=== PATIENT | female | born 1975 | race Caucasian/White ===

== ENCOUNTER → 2023-02-02 08:52 | Outpatient (CLI) | payer OTHER, SELFPAY ==
--- NOTE | 2023-02-02 08:58 | DI.RAD.S_ITS ---
PROCEDURE: XR ANKLE RT MIN 3V INDICATIONS: RIGHT ANKLE PAIN TECHNIQUE: 3 views of the ankle were acquired. COMPARISON: None. FINDINGS: Bones: No fractures or dislocations. Ankle mortise is normally aligned. No suspicious bony lesions. Soft tissues: No tibiotalar joint effusion. Achilles tendon appears normal. IMPRESSION: No evidence acute bony abnormality. If clinical suspicion and/or symptoms persist, further assessment with repeat plain films, or advanced imaging (e.g., CT, MRI, or bone scan) may be helpful for further assessment. Dictated by: Han Mccallum M.D. on 02/02/2023 at 9:33 Approved by: Han Mccallum M.D. on 02/02/2023 at 9:33
== END ==
PROVIDERS: PCP Orthopaedic Surgery; Referring Provider Physical Medicine & Rehabilitation; Visit Provider Physical Medicine & Rehabilitation
DX: S86.111A Strain of other muscle(s) and tendon(s) of posterior muscle group at lower leg level, right leg, initial encounter (principal); M25.571 Pain in right ankle and joints of right foot; Q79.60 Ehlers-Danlos syndrome, unspecified; M76.61 Achilles tendinitis, right leg
CPT/HCPCS: 73610; 76882